=== PATIENT | female | born 1995 | race Two or more races ===

== ENCOUNTER 2025-10-10 16:00 | Outpatient (RCR) | payer OTHER, SELFPAY ==
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
--- NOTE | 2025-10-08 14:13 | PT.ODAYNRPT ---
PT Outpatient Daily Note OP Daily Note Outpatient Physical Therapy Treatment Date: 10/08/25 Visit Reasons: HIP AND BACK PAIN Subjective: Same as time of evaluation Objective: See F/S for therex MT: STM L/S R SI joint area and R hip GT x7' with [place] Assessment: High TTP of R Liam's area that may be referred from SI joint. The R GT region is also moderately TTP. Plan: Continue per POC Length of Time (minutes) of Treatment: 30 Minutes Procedure Charges Therapeutic Exercise 30 minutes: Yes
--- NOTE | 2025-10-10 17:16 | PT.ODAYNRPT ---
PT Outpatient Daily Note OP Daily Note Outpatient Physical Therapy Treatment Date: 10/10/25 Visit Reasons: HIP AND BACK PAIN Subjective: Pt sneezed and felt pain in the T/S intercostals Objective: See F/S for therex MT: STM T/S intercostals x7' Assessment: The T/S intercostals are moderately TTP with light STM Plan: Continue per POC Length of Time (minutes) of Treatment: 30 Minutes Procedure Charges Therapeutic Exercise 30 minutes: Yes
== END 2025-10-20 23:59 | disposition home or self-care (01) ==
LOC: CPTX 16:00
PROVIDERS: PCP Internal Medicine; Referring Provider Internal Medicine; Visit Provider Internal Medicine
DX: M54.50 Low back pain, unspecified (principal); M25.551 Pain in right hip
CPT/HCPCS: 97110; 97162